=== PATIENT | male | born 1990 | race Hispanic/Latino ===

== ENCOUNTER 2017-08-29 06:28 | Day surgery (SDC) | payer MEDICAID ==
[~2017-08-29] VITALS: Ht 177.8 cm; Wt 136.3 kg
[~2017-08-29 06:28] MED LIST: SODIUM CHLORIDE 0.9% 1000ML 1,000 ML IV ONE
[2017-08-29 06:53] VITALS: BP 103/20
[2017-08-29] MEDS ORDERED: METF500T6 PO (07:28)
[2017-08-29] MEDS ORDERED: PROPOFOL 10 MG/ML 20ML VIAL IV ONE (07:39)
== END 2017-08-29 08:35 | disposition home or self-care (01) ==
LOC: SUH 06:28 → DAH 06:28 → SUH 08:35
PROVIDERS: ATTEND Internal Medicine Gastroenterology
DX: K29.50 Unspecified chronic gastritis without bleeding (principal); K21.0 Gastro-esophageal reflux disease with esophagitis; I10 Essential (primary) hypertension; E11.9 Type 2 diabetes mellitus without complications; Z79.84 Long term (current) use of oral hypoglycemic drugs; Z72.0 Tobacco use
CPT/HCPCS: 43239; 82948 ×2; 88305; 88312; 88342; A4606; J2704; J7030

== ENCOUNTER 2018-11-17 22:52 | Inpatient (IN) | payer MEDICAID, OTHER ==
[~2018-11-17] VITALS: Ht 180.3 cm; Wt 119.6 kg
[~2018-11-17 22:52] MED LIST changes: +METF-444 PO; -SODIUM CHLORIDE 0.9% 1000ML 1,000 ML IV ONE
[2018-11-17] MEDS ORDERED: SODIUM CHLORIDE 0.9% 1000ML 1,000 ML IV ONE (23:36)
[2018-11-18 00:01] LABS: ABG BASE EXCESS 0.9 mmol/L (-2.0-3.0); ABG HCO3 24.4 mmol/L (21.0-28.0); ABG OXYGEN SATURATION 88.5 % (95.0-99.0); ABG PCO2 36 mmHg (35-48)
[2018-11-18 00:33] LABS: BASOPHILS % (AUTO) 0.5 % (0.0-5.0); EOSINOPHILS % (AUTO) 0.6 % (0.0-8.0); HEMATOCRIT 40.3 % (42-54); LYMPHOCYTES % (AUTO) 6.2 % (21.0-51.0); MEAN CORPUSCULAR HEMOGLOBIN 29.7 pg (27.0-33.0); MEAN CORPUSCULAR HGB CONC 33.1 g/dL (32.0-36.0); MEAN CORPUSCULAR VOLUME 89.6 fL (79-99); MONOCYTES % (AUTO) 10.5 % (3.0-13.0); NEUTROPHILS % (AUTO) 82.2 % (40.0-77.0); PLATELET COUNT (AUTO) 315 K/uL (130-400); RED CELL DISTRIBUTION WIDTH 13.7 % (11.0-15.5); WHITE BLOOD COUNT (AUTO) 14.9 K/uL (4.8-10.8)
[2018-11-18 01:09] LABS: APPEARANCE,URINE Clear (CLEAR); BILIRUBIN,URINE Negative (NEGATIVE); COLOR,URINE Yellow (YELLOW); GLUCOSE, URINE (UA) >=1000 mg/dL (NEGATIVE); KETONES,URINE >=80 mg/dL (NEGATIVE); LEUKOCYTE ESTERASE ,URINE Negative (NEGATIVE); NITRATE,URINE Negative (NEGATIVE); OCCULT BLOOD,URINE Negative (NEGATIVE); PROTEIN,URINE Negative (NEGATIVE)
[2018-11-18] MEDS ORDERED: SODIUM CHLORIDE 0.9% 1000ML 4,000 ML IV ONE (01:14)
[2018-11-18] MEDS ORDERED: ZOSYN 3.375GM+NS 50ML 50 ML IV ONE (01:14)
[2018-11-18] MEDS ORDERED: INSULIN HUMULIN R 100 UNIT/ML 3ML ONE (01:21)
[2018-11-18] MEDS ORDERED: IOHEXOL-350 75 ML VIAL IV ONE (01:46)
[2018-11-18 02:14] LABS: BACTERIA,URINE Rare /HPF (None Seen); RBC,URINE 0-1 /HPF (0-1); WBC,URINE 0-1 /HPF (0-1); YEAST,URINE BUDDING Few /HPF (None Seen)
[2018-11-18] MEDS: SODIUM CHLORIDE 0.9% 1000ML 1,000 ML IV SCH ×2 (02:24→13:20)
[2018-11-18] MEDS ORDERED: MORPHINE SULFATE 4 MG/1ML SYG IV PRN (02:30)
[2018-11-18] MEDS ORDERED: ONDANSETRON HCL 4 MG/2 ML VIAL IV PRN (02:30)
[2018-11-18] MEDS ORDERED: GUAIFENESIN-CODEINE 5 ML SYRUP PO PRN (02:30)
[2018-11-18] MEDS: AZITHROMYCIN 500MG+NS 250ML 250 ML IV SCH (02:30)
[2018-11-18] MEDS ORDERED: DIPHENHYDRAMINE HCL 25 MG CAPSULE PO PRN (02:30)
[2018-11-18] MEDS ORDERED: ACETAMINOPHEN 325 MG TAB PO PRN (02:30)
[2018-11-18] MEDS: CEFTRIAXONE SODIUM 1 GM IV SCH (02:30)
[2018-11-18] MEDS ORDERED: MORPHINE SULFATE 2 MG/ML 1ML SYG IV PRN (02:30)
[2018-11-18] MEDS ORDERED: IBUPROFEN 800 MG TAB ONE (02:45)
[2018-11-18] MEDS ORDERED: ACETAMINOPHEN EXTRA STRENGTH 500 MG TABLET ONE (02:45)
[2018-11-18 03:00] VITALS: BP 147/80
[2018-11-18] MEDS ORDERED: CEFTRIAXONE SODIUM 1 GM ONE (03:41)
[2018-11-18] MEDS ORDERED: AZITHROMYCIN 500MG+NS 250ML 250 ML IV ONE (03:41)
[2018-11-18] MEDS ORDERED: SODIUM CHLORIDE 0.9% 1000ML 1,000 ML IV ONE (03:42)
[2018-11-18 07:00] VITALS: BP 138/95
[2018-11-18] MEDS: INSULIN HUMULIN R 100 UNIT/ML 3ML SQ SCH ×4 (07:09→21:00)
[2018-11-18] MEDS: IPRATROPIUM/ALBUTEROL SULFATE 3 ML SOLUTION IH SCH ×4 (07:19→23:23)
--- NOTE | 2018-11-18 07:30 | NUR ---
PT RECEIVED IN BED, AAOX3, PT ON VM AT 35 %. POC DISCUSSED WITH PATIENT TO DECREASE VM TO O2 CANULA. PT VOICE UNDERSTANDING. ENCOURAGED ON ENERGY CONSERVATION TO MAINTAIN ADEQUATE OXYGENATION. PT VOICED UNDERSTANDING. TELE WITH ST 106. WILL CONT TO MONITOR.
[2018-11-18] MEDS: FAMOTIDINE/PF 20 MG/2 ML VIAL IV SCH ×2 (08:19→21:11)
[2018-11-18] MEDS: ENOXAPARIN SODIUM 40 MG/0.4 ML SYRINGE SQ SCH ×2 (08:19→21:13)
[2018-11-18 11:00] VITALS: BP 148/75
--- NOTE | 2018-11-18 15:19 | NUR ---
DC PLAN PATIENT LIVES WITH SPOUSE. INDEPENDENT ABLE TO PERFORM ADL'S. PATIENT HAS NO SER VICES OR DME'S. FEELS SAFE TO RETURN HOME. LOST MEDICAID RECENTLY GAVE LOW INCOME CLINIC INFO. Addendum: 11/18/18 at 1520 by REZA LUCIO RN CM Amended: Links added.
[2018-11-18 16:00] VITALS: BP 146/98
--- NOTE | 2018-11-18 17:00 | NUR ---
VENTI-MASK REMOVED. NO C/O SOB AT THIS TIME. WILL CONT TO MONITOR.
[2018-11-18 20:33] VITALS: BP 142/78
--- NOTE | 2018-11-18 21:00 | NUR ---
Per Dr Haskins start patient on Metoprolol tartrate 25mg bid for tachycardia. Hold if HR <60
[2018-11-18] MEDS: METOPROLOL TARTRATE 25 MG TAB PO SCH (22:44)
[2018-11-19 00:12] VITALS: BP 136/85
[2018-11-19] MEDS: ACETAMINOPHEN 325 MG TAB PO PRN ×2 (00:23→20:47)
[2018-11-19] MEDS: AZITHROMYCIN 500MG+NS 250ML 250 ML IV SCH (01:40)
[2018-11-19] MEDS: CEFTRIAXONE SODIUM 1 GM IV SCH (01:40)
[2018-11-19] MEDS: SODIUM CHLORIDE 0.9% 1000ML 1,000 ML IV SCH ×2 (01:41→20:48)
[2018-11-19 03:40] LABS: BASOPHILS % (AUTO) 0.3 % (0.0-5.0); HEMATOCRIT 35.2 % (42-54); LYMPHOCYTES % (AUTO) 10.9 % (21.0-51.0); MEAN CORPUSCULAR HEMOGLOBIN 29.7 pg (27.0-33.0); MEAN CORPUSCULAR HGB CONC 33.4 g/dL (32.0-36.0); MEAN CORPUSCULAR VOLUME 89.1 fL (79-99); MONOCYTES % (AUTO) 10.6 % (3.0-13.0); NEUTROPHILS % (AUTO) 76.2 % (40.0-77.0); PLATELET COUNT (AUTO) 317 K/uL (130-400); RED BLOOD CELL COUNT(AUTO) 3.95 MIL/uL (4.50-6.20); RED CELL DISTRIBUTION WIDTH 13.6 % (11.0-15.5); WHITE BLOOD COUNT (AUTO) 10.1 K/uL (4.8-10.8)
[2018-11-19 03:51] LABS: CREATININE 0.6 mg/dL (0.5-1.5); POTASSIUM 3.3 mmol/L (3.5-5.1)
[2018-11-19 04:31] VITALS: BP 148/91
[2018-11-19] MEDS: IPRATROPIUM/ALBUTEROL SULFATE 3 ML SOLUTION IH SCH ×4 (06:08→23:11)
[2018-11-19] MEDS: INSULIN HUMULIN R 100 UNIT/ML 3ML SQ SCH ×4 (07:16→21:00)
[2018-11-19 08:22] VITALS: BP 161/98
[2018-11-19] MEDS: METOPROLOL TARTRATE 25 MG TAB PO SCH ×2 (08:43→20:36)
[2018-11-19] MEDS: ENOXAPARIN SODIUM 40 MG/0.4 ML SYRINGE SQ SCH ×2 (08:43→20:37)
[2018-11-19] MEDS: FAMOTIDINE/PF 20 MG/2 ML VIAL IV SCH ×2 (08:43→20:36)
[2018-11-19 11:00] VITALS: BP 143/109
[2018-11-19 16:00] VITALS: BP 161/88
--- NOTE | 2018-11-19 16:41 | NUR ---
RD Notification Pt tolerating 60gm CCD with no report of GI distress. Fair appetite at 50-75%. Pt LBM 11/17/18. Pt monitored labs: K 3.3, Cl 100, BUN 6, Glu 171, A1C 13.0, Alb 2.7. RD provided diet education. Rec to continue 60gm CCD. RD to continue to monitor. Please notify RD as additional nutrition concerns arise. Thank you. Addendum: 11/19/18 at [address] RD Amended: Links added.
--- NOTE | 2018-11-19 16:44 | NUR ---
Diet education RD provided Diabetes and nutrition diet education. RD reviewed reference materials and handouts with Pt. Pt with multiple questions. RD answered questions and discussed examples and sample meal planning and other lifestyle factors with Pt. Pt verbalized understanding. RD encouraged Pt to notify as additional questions or concerns arise. RD to continue to monitor. Addendum: 11/19/18 at [address] RD Amended: Links added.
[2018-11-19 19:51] VITALS: BP 148/95
[2018-11-19] MEDS ORDERED: CEFAZOLIN SODIUM 1 GM VIAL IVP PRN (22:00)
[2018-11-19] MEDS: INSULIN GLARGINE 100 UNITS/ML 10 ML VIAL SQ SCH (22:37)
[2018-11-20] VITALS (12 sets, daily range): BP systolic 110–163; BP diastolic 55–95
[2018-11-20] MEDS: AZITHROMYCIN 500MG+NS 250ML 250 ML IV SCH (03:28)
[2018-11-20] MEDS: CEFTRIAXONE SODIUM 1 GM IV SCH (03:28)
[2018-11-20 04:18] LABS: HEMATOCRIT 34.6 % (42-54); MEAN CORPUSCULAR HEMOGLOBIN 29.6 pg (27.0-33.0); MEAN CORPUSCULAR HGB CONC 33.2 g/dL (32.0-36.0); MEAN CORPUSCULAR VOLUME 89.2 fL (79-99); PLATELET COUNT (AUTO) 345 K/uL (130-400); RED BLOOD CELL COUNT(AUTO) 3.88 MIL/uL (4.50-6.20); RED CELL DISTRIBUTION WIDTH 13.5 % (11.0-15.5); WHITE BLOOD COUNT (AUTO) 9.8 K/uL (4.8-10.8)
[2018-11-20 04:23] LABS: CREATININE 0.8 mg/dL (0.5-1.5)
[2018-11-20 04:31] LABS: INR 0.98 (0.85-1.15); PARTIAL THROMBOPLASTIN TIME 31.1 SEC (26.3-35.5); PROTHROMBIN TIME 10.3 SEC (9.6-11.6)
--- NOTE | 2018-11-20 04:56 | NUR ---
ORDERS NOTIFIED JAI WILLIS OF PATIENT'S POTASSIUM LEVEL. ELECTROLYTE PROTOCOL WILL BE INPUT BY RESPIRATORY THERAPY AIDE
--- NOTE | 2018-11-20 04:58 | NUR ---
PATIENT CLIPPED AND PREPPED FOR VATS PROCEDURE. CONSENT SIGNED. EDUCATION READING MATERIAL GIVEN
[2018-11-20] MEDS ORDERED: MAGNESIUM 2GM PREMIX 50ML 50 ML IV PRN (05:00)
[2018-11-20] MEDS: IPRATROPIUM/ALBUTEROL SULFATE 3 ML SOLUTION IH SCH ×3 (06:13→18:00)
[2018-11-20] MEDS: POTASSIUM CHLORIDE 20MEQ/100ML 100 ML IV PRN ×2 (06:23→23:53)
[2018-11-20] MEDS: INSULIN HUMULIN R 100 UNIT/ML 3ML SQ SCH ×3 (07:28→16:30)
--- NOTE | 2018-11-20 07:30 | NUR ---
AM ASSESSMENT PT LAYING IN BED, HOB ELEVATED 30 DEGREES, WATCHING TV. SPOUSE @ BEDSIDE. A/O X 3. SOB ON EXERTION. NO DISTRESS NOTED. O2 NC @ 2L. O2 EXTENSION GIVEN @ THIS TIME. DENIES CHEST PAIN OR DISCOMFORT. DENIES PALPITATIONS. DENIES N/V AND/OR DIARRHEA. NPO STATUS REINFORCED. PT TO HAVE VATS TODAY. 0.9% NACL INFUSING @ 100 ML/HR. UP W/ASSISTANCE. INSTRUCTED TO CALL FOR ASSISTANCE. CALL ROZ W/IN REACH.
[2018-11-20] MEDS: FAMOTIDINE/PF 20 MG/2 ML VIAL IV SCH ×2 (08:33→23:21)
[2018-11-20] MEDS: ENOXAPARIN SODIUM 40 MG/0.4 ML SYRINGE SQ SCH (08:33)
[2018-11-20] MEDS: METOPROLOL TARTRATE 25 MG TAB PO SCH ×2 (08:33→21:00)
[2018-11-20] MEDS: SODIUM CHLORIDE 0.9% 1000ML 1,000 ML IV SCH ×3 (15:07→23:07)
[2018-11-20] MEDS ORDERED: DEXAMETHASONE SOD PHOSPHATE 10MG/ML 1ML VIAL ONE (17:25)
[2018-11-20] MEDS ORDERED: LIDOCAINE PF 2% 5ML ABBOJECT ONE (17:25)
[2018-11-20] MEDS ORDERED: SUCCINYLCHOLINE 200MG/10ML SYR ONE (17:25)
[2018-11-20] MEDS ORDERED: ONDANSETRON HCL 4 MG/2 ML VIAL ONE (17:25)
--- NOTE | 2018-11-20 17:25 | NUR ---
STATUS PT TAKEN TO OR VIA BED ACCOMPANIED BY FAMILY. TELE CHRISTOPHER REMOVED.
[2018-11-20] MEDS ORDERED: FENTANYL CITRATE PF 50 MCG/1 ML 2ML VIAL ONE (17:26)
[2018-11-20] MEDS ORDERED: NEOSTIGMINE 5MG/5ML SYR IV ONE (17:26)
[2018-11-20] MEDS ORDERED: ROCURONIUM 10MG/1ML SYR 10 MG/ML ML ONE ×2 (17:26→20:28)
[2018-11-20] MEDS ORDERED: MIDAZOLAM HCL 1 MG/ML 2ML VIAL ONE (17:26)
[2018-11-20] MEDS ORDERED: GLYCOPYRROLATE 1 MG/5 ML SYRINGE ONE (17:26)
[2018-11-20] MEDS ORDERED: PROPOFOL 10 MG/ML 20ML VIAL IV ONE (17:26)
[2018-11-20] MEDS ORDERED: BACITRACIN 50,000 UNIT VIAL ONE (18:06)
[2018-11-20] MEDS ORDERED: CEFAZOLIN SODIUM 1 GM VIAL ONE (18:43)
[2018-11-20] MEDS ORDERED: SODIUM BICARB 50MEQ 50ML VIAL IV PRN (20:15)
[2018-11-20] MEDS ORDERED: MORPHINE SULFATE 2 MG/ML 1ML SYG IVP PRN ×2 (20:15)
[2018-11-20 20:22] LABS: ABG BASE EXCESS 1.3 mmol/L (-2.0-3.0); ABG HCO3 25.6 mmol/L (21.0-28.0); ABG PCO2 40 mmHg (35-48)
[2018-11-20] MEDS: INSULIN GLARGINE 100 UNITS/ML 10 ML VIAL SQ SCH (21:00)
[2018-11-20] MEDS ORDERED: FENTANYL CITRATE PF 50 MCG/1 ML 5ML AMP IV ONE (21:46)
[2018-11-20] MEDS ORDERED: PROPOFOL 1000 MG/100 ML 100 ML IV ONE ×2 (22:28→23:39)
[2018-11-20 22:58] LABS: HEMATOCRIT 35.2 % (42-54); MEAN CORPUSCULAR HEMOGLOBIN 29.9 pg (27.0-33.0); MEAN CORPUSCULAR HGB CONC 33.7 g/dL (32.0-36.0); MEAN CORPUSCULAR VOLUME 88.7 fL (79-99); NUCLEATED RED BLOOD CELLS 0.1 % (0.0-0.19); PLATELET COUNT (AUTO) 394 K/uL (130-400); RED BLOOD CELL COUNT(AUTO) 3.97 MIL/uL (4.50-6.20); RED CELL DISTRIBUTION WIDTH 13.8 % (11.0-15.5); WHITE BLOOD COUNT (AUTO) 11.9 K/uL (4.8-10.8)
[2018-11-20 22:59] LABS: ABG BASE EXCESS 0.1 mmol/L (-2.0-3.0); ABG OXYGEN SATURATION 97.8 % (95.0-99.0); ABG PCO2 41 mmHg (35-48)
[2018-11-20] MEDS ORDERED: METOPROLOL TARTRATE 1 MG/ML 5ML VIAL IV PRN (23:00)
[2018-11-20 23:06] LABS: CREATININE 0.7 mg/dL (0.5-1.5); POTASSIUM 3.4 mmol/L (3.5-5.1)
[2018-11-20] MEDS: ZOSYN 3.375GM+NS 50ML 50 ML IV SCH (23:22)
[2018-11-20] MEDS: LIDOCAINE HCL-MPF 1% 2ML VIAL IVP PRN (23:53)
[2018-11-21] VITALS (66 sets, daily range): BP systolic 100–178; BP diastolic 64–104
[2018-11-21] MEDS: INSULIN HUMULIN R 100 UNIT/ML 3ML SQ SCH ×5 (00:03→21:00)
[2018-11-21] MEDS ORDERED: PROPOFOL 1000 MG/100 ML IV PRN (00:05)
--- NOTE | 2018-11-21 00:15 | NUR ---
2230 Admitted from OR, vented. Initial assessment completed. Spoke with Dr De Anda. Orders received. Labs drawn, chest x ray done on admission to ICU. 0015 Dr De Anda here. Reviewed labs, abgs, saw chest x ray, spoke with patient's , mother. Orders received.
[2018-11-21] MEDS: IPRATROPIUM/ALBUTEROL SULFATE 3 ML SOLUTION IH SCH ×5 (00:34→23:28)
[2018-11-21] MEDS ORDERED: PROPOFOL 1000 MG/100 ML 100 ML IV ONE (01:21)
[2018-11-21] MEDS: AZITHROMYCIN 500MG+NS 250ML 250 ML IV SCH (01:32)
[2018-11-21] MEDS: CEFAZOLIN SODIUM 1 GM VIAL IVP SCH ×2 (03:38→11:07)
[2018-11-21] MEDS: PROPOFOL 1000 MG/100 ML 100 ML IV PRN ×9 (03:39→22:36)
[2018-11-21 04:01] LABS: HEMATOCRIT 34.7 % (42-54); MEAN CORPUSCULAR HEMOGLOBIN 28.9 pg (27.0-33.0); MEAN CORPUSCULAR HGB CONC 32.6 g/dL (32.0-36.0); MEAN CORPUSCULAR VOLUME 88.6 fL (79-99); PLATELET COUNT (AUTO) 418 K/uL (130-400); RED BLOOD CELL COUNT(AUTO) 3.92 MIL/uL (4.50-6.20); RED CELL DISTRIBUTION WIDTH 13.6 % (11.0-15.5); WHITE BLOOD COUNT (AUTO) 13.6 K/uL (4.8-10.8)
[2018-11-21 04:10] LABS: CREATININE 0.6 mg/dL (0.5-1.5); MAGNESIUM 2.4 mg/dL (1.80-2.40); POTASSIUM 3.9 mmol/L (3.5-5.1)
[2018-11-21 04:27] LABS: ABG HCO3 21.3 mmol/L (21.0-28.0); ABG OXYGEN SATURATION 96.6 % (95.0-99.0); ABG PCO2 36 mmHg (35-48)
[2018-11-21] MEDS: ZOSYN 3.375GM+NS 50ML 50 ML IV SCH ×3 (06:17→22:36)
--- NOTE | 2018-11-21 07:50 | NUR ---
Care of patient endorsed earlier to Sal DUKE and Ana Cristina DUKE. Dr Hardin rounded earlier. Full report given.
[2018-11-21] MEDS: METOPROLOL TARTRATE 25 MG TAB PO SCH ×2 (08:50→20:38)
[2018-11-21] MEDS: FAMOTIDINE/PF 20 MG/2 ML VIAL IV SCH ×2 (08:50→20:39)
[2018-11-21] MEDS: TRAMADOL HCL 50 MG TABLET PO PRN ×2 (12:17→20:39)
--- NOTE | 2018-11-21 14:20 | NUR ---
DR WALSH AT BEDSIDE TO PERFORM BRONCHOSCOPY, RT X3 AT BEDSIDE TO ASSIST.
--- NOTE | 2018-11-21 15:40 | NUR ---
DR WALSH NOTIFIED VIA PHONE ABOUT LATEST TEMP 101.2 AXILLARY, NEW ORDERS GIVEN TO START VANCO 1 GRAM IV Q 12 HRS, VANCO TROUGH BEFORE 3RD DOSE. DOES NOT WANT PHARMACY TO DOSE VANCO.
[2018-11-21] MEDS: VANCOMYCIN 1GM+NS 250ML 250 ML IV SCH (15:55)
[2018-11-21] MEDS ORDERED: IPRATROPIUM/ALBUTEROL SULFATE 3 ML SOLUTION IH SCH (16:00)
--- NOTE | 2018-11-21 16:50 | NUR ---
PLACED ON SIMV MODE PER RT, RATE 4, 10 OVER 5, BECAME VERY TACHYPNEIC, RESP 37, LOW TIDAL VOLUMES 50-150, DESATING INTO THE 80'S, PLACED BACK ON AC MODE SETTINGS. DR MCCABE MADE AWARE, NEW ORDERS GIVEN TO TRY AGAIN UNTIL TOMORROW, PER CVR PROTOCOL.
[2018-11-21] MEDS: SODIUM CHLORIDE 0.9% 1000ML 1,000 ML IV SCH (18:04)
[2018-11-21] MEDS: ACETYLCYSTEINE 10% 100MG/ML 4ML VIAL IH SCH (18:22)
[2018-11-21] MEDS: INSULIN GLARGINE 100 UNITS/ML 10 ML VIAL SQ SCH (20:51)
[2018-11-22] VITALS (24 sets, daily range): BP systolic 105–148; BP diastolic 62–91
[2018-11-22] MEDS: PROPOFOL 1000 MG/100 ML 100 ML IV PRN ×8 (00:17→23:18)
[2018-11-22] MEDS: AZITHROMYCIN 500MG+NS 250ML 250 ML IV SCH (02:12)
[2018-11-22] MEDS: VANCOMYCIN 1GM+NS 250ML 250 ML IV SCH (03:18)
[2018-11-22 03:56] LABS: BASOPHILS % (AUTO) 0.3 % (0.0-5.0); EOSINOPHILS % (AUTO) 0.9 % (0.0-8.0); HEMATOCRIT 31.8 % (42-54); LYMPHOCYTES % (AUTO) 10.2 % (21.0-51.0); MEAN CORPUSCULAR HGB CONC 33.7 g/dL (32.0-36.0); MONOCYTES % (AUTO) 9.3 % (3.0-13.0); NEUTROPHILS % (AUTO) 79.3 % (40.0-77.0); NUCLEATED RED BLOOD CELLS 0.1 % (0.0-0.19); PLATELET COUNT (AUTO) 427 K/uL (130-400); RED BLOOD CELL COUNT(AUTO) 3.57 MIL/uL (4.50-6.20); RED CELL DISTRIBUTION WIDTH 13.8 % (11.0-15.5); WHITE BLOOD COUNT (AUTO) 12.1 K/uL (4.8-10.8)
[2018-11-22 04:09] LABS: CREATININE 0.6 mg/dL (0.5-1.5)
[2018-11-22] MEDS: POTASSIUM CHLORIDE 20MEQ/100ML 100 ML IV PRN ×2 (04:28→05:31)
[2018-11-22] MEDS: ZOSYN 3.375GM+NS 50ML 50 ML IV SCH ×3 (06:22→23:15)
[2018-11-22] MEDS: INSULIN HUMULIN R 100 UNIT/ML 3ML SQ SCH ×4 (06:27→21:00)
[2018-11-22] MEDS: IPRATROPIUM/ALBUTEROL SULFATE 3 ML SOLUTION IH SCH ×4 (06:59→23:10)
[2018-11-22] MEDS: ACETYLCYSTEINE 10% 100MG/ML 4ML VIAL IH SCH ×2 (06:59→18:05)
--- NOTE | 2018-11-22 07:52 | NUR ---
VENT WEANING IN PROGRESS. SIMV MODE PER CVR PROTOCOL. PT IS RESPONSIVE AND CALM AT PRET
--- NOTE | 2018-11-22 08:30 | NUR ---
DR MCCABE HAS CONVERTED CHEST TUBES TO HENNA BULB SUCTION X 2 BULBS. GARFIELDRISAVITA TURNED OFF.
[2018-11-22] MEDS: FAMOTIDINE/PF 20 MG/2 ML VIAL IV SCH ×2 (08:45→20:27)
[2018-11-22] MEDS: METOPROLOL TARTRATE 25 MG TAB PO SCH ×2 (08:45→20:27)
[2018-11-22 08:52] LABS: ABG BASE EXCESS 2.6 mmol/L (-2.0-3.0); ABG HCO3 27.9 mmol/L (21.0-28.0); ABG OXYGEN SATURATION 86.7 % (95.0-99.0); ABG PCO2 45 mmHg (35-48)
--- NOTE | 2018-11-22 09:37 | NUR ---
PT NOW WIDE AWAKE AND NOT BUCKING VENTILATOR. ABG CHECKED AND PO2 WAS LOW 51.8. RESPIRATORY THERAPY HAS PLACED PT ON 60%FIO2. PT IS COMMUNICATING WITH HIS CELL PHONE BY TEXTING. WILL CONTINUE TO WEAN TOLERATED
[2018-11-22 10:23] LABS: ABG BASE EXCESS 0.9 mmol/L (-2.0-3.0); ABG HCO3 25.6 mmol/L (21.0-28.0); ABG OXYGEN SATURATION 95.2 % (95.0-99.0); ABG PCO2 41 mmHg (35-48)
--- NOTE | 2018-11-22 10:35 | NUR ---
PT REMAINING CALM ,BUT EXPRESSES THAT HE IS GETTING FRUSTRATED WITH ET TUBE AND HAVING TROUBLE RELAXING. ABG REVIEWED. DR ELIOT SANTOS.
--- NOTE | 2018-11-22 10:49 | NUR ---
NO CALL BACK FROM DR MCCABE. PT CALLS ME AGAIN, HE IS GETTING FATIGUED. HE ASKS ME TO START SEDATION. I HAVE RESTARTED DIPRIVAN AT 20MCG/KG/MIN. WILL CONTINUE TO REASSESS.
--- NOTE | 2018-11-22 11:15 | NUR ---
PT NOW RESTFUL/CALM. DR MCCABE RETURNED PAGE AND ASKED ME TO CONTINUE I AM DOING AND TO HAVE PULMONOLOGY HELP WITH WEANING.
--- NOTE | 2018-11-22 13:45 | NUR ---
DR ALVARADO ROUNDS MADE AT BEDSIDE. REPORT GIVEN TO DR ALVARADO. ORDERS RECEIVED FOR VENT WEANING IN AM
[2018-11-22] MEDS: ENOXAPARIN SODIUM 40 MG/0.4 ML SYRINGE SQ SCH (14:28)
[2018-11-22] MEDS: SODIUM CHLORIDE 0.9% 1000ML 1,000 ML IV SCH (14:28)
--- NOTE | 2018-11-22 16:05 | NUR ---
DR MCCABE NOTIFIED WITH VANCOMYCIN LEVEL RESULTS OF 1.9. ORDER RECEIVED TO INCREASE DOSE TO 1.25GM IV Q12HR
[2018-11-22] MEDS ORDERED: PHARMACY COMMUNICATION MISC SCH (16:15)
[2018-11-22] MEDS: VANCOMYCIN 1.25 GM in SODIUM CHLORIDE 0.9% 250 ML IV SCH (16:51)
[2018-11-22] MEDS ORDERED: VANCOMYCIN 1.25 GM in SODIUM CHLORIDE 0.9% 250 ML IV SCH (17:00)
[2018-11-22] MEDS ORDERED: COMPOUND IV REFRIGERATED 1 EACH IVSOLN MISC PRN (17:00)
--- NOTE | 2018-11-22 19:10 | NUR ---
HAND OFF REPORT GIVEN TO HARVEY DUKE
--- NOTE | 2018-11-22 19:12 | NUR ---
ASSESSMENT: REPORT RECEIVED, PATIENT AWAKE, ALERT, FOLLOWS COMMANDS , INTUBATED AND SEDATED WITH LOW DOSE DIPRIVAN. EXTREMITIES STRONG X4, EQUAL HAND GRASPS, IVETTE 3MM EQUAL, LUNGS CLEAR, DIMINISHED TO RLL. HENNA BULBS X 2 TO LEFT CHEST WALL COMPRESSED WITH SEROSANGUINEOUS DRAINAGE, BREWER PATENT TO BEDSIDE DRAINAGE. AT BEDSIDE. PLAN OF CARE DISCUSSED. CALL COURTNEY IN REACH.
[2018-11-22] MEDS: INSULIN GLARGINE 100 UNITS/ML 10 ML VIAL SQ SCH (21:36)
[2018-11-23] VITALS (26 sets, daily range): BP systolic 102–158; BP diastolic 59–97
[2018-11-23] MEDS: PROPOFOL 1000 MG/100 ML 100 ML IV PRN ×2 (01:36→10:11)
[2018-11-23] MEDS: AZITHROMYCIN 500MG+NS 250ML 250 ML IV SCH (01:36)
[2018-11-23 03:37] LABS: EOSINOPHILS % (AUTO) 1.8 % (0.0-8.0); HEMATOCRIT 30.9 % (42-54); LYMPHOCYTES % (AUTO) 10.9 % (21.0-51.0); MEAN CORPUSCULAR HGB CONC 32.8 g/dL (32.0-36.0); MEAN CORPUSCULAR VOLUME 88.4 fL (79-99); MONOCYTES % (AUTO) 8.7 % (3.0-13.0); NEUTROPHILS % (AUTO) 77.6 % (40.0-77.0); PLATELET COUNT (AUTO) 449 K/uL (130-400); RED CELL DISTRIBUTION WIDTH 13.9 % (11.0-15.5); WHITE BLOOD COUNT (AUTO) 10.6 K/uL (4.8-10.8)
[2018-11-23 03:50] LABS: CREATININE 0.6 mg/dL (0.5-1.5); POTASSIUM 3.2 mmol/L (3.5-5.1)
[2018-11-23] MEDS: POTASSIUM CHLORIDE 20MEQ/100ML 100 ML IV PRN ×2 (04:20→16:12)
[2018-11-23] MEDS: LIDOCAINE HCL-MPF 1% 2ML VIAL IVP PRN ×2 (04:21→16:15)
[2018-11-23] MEDS: VANCOMYCIN 1.25 GM in SODIUM CHLORIDE 0.9% 250 ML IV SCH ×2 (04:53→16:16)
[2018-11-23] MEDS: ZOSYN 3.375GM+NS 50ML 50 ML IV SCH ×3 (06:30→23:05)
[2018-11-23] MEDS: INSULIN HUMULIN R 100 UNIT/ML 3ML SQ SCH ×4 (06:33→20:16)
[2018-11-23] MEDS: IPRATROPIUM/ALBUTEROL SULFATE 3 ML SOLUTION IH SCH ×4 (06:49→23:02)
[2018-11-23] MEDS: ACETYLCYSTEINE 10% 100MG/ML 4ML VIAL IH SCH ×2 (06:50→17:54)
--- NOTE | 2018-11-23 07:01 | NUR ---
PT AWAKE AND ALERT. CALM. PLAN OF CARE DISCUSSED GOALS MADE. WANTS TO BE EXTUBATED. CPAP TRIAL IN PROGRESS.
[2018-11-23] MEDS: FAMOTIDINE/PF 20 MG/2 ML VIAL IV SCH ×2 (08:09→20:36)
[2018-11-23] MEDS: METOPROLOL TARTRATE 25 MG TAB PO SCH ×2 (08:09→20:37)
[2018-11-23] MEDS: ENOXAPARIN SODIUM 40 MG/0.4 ML SYRINGE SQ SCH (08:09)
[2018-11-23 08:59] LABS: ABG BASE EXCESS 3.7 mmol/L (-2.0-3.0); ABG HCO3 27.9 mmol/L (21.0-28.0); ABG OXYGEN SATURATION 90.8 % (95.0-99.0); ABG PCO2 41 mmHg (35-48)
--- NOTE | 2018-11-23 09:30 | NUR ---
DR MCCABE NOTIFIED WITH ABG /VS/PT RESPIRATORY STATS. PT PLACED BACK ON AC SETTINGS AND FIO2 INCREASED TO 50%. WILL RESUME SEDATION. CT ANGIO OF THE CHEST TO RULE OUT PE ORDERED. PT AND FAMILY INFORMED
[2018-11-23] MEDS ORDERED: IOHEXOL 350 MG/ML 100ML INFUS..BTL IV ONE ×2 (09:34→10:34)
[2018-11-23] MEDS: SODIUM CHLORIDE 0.9% 1000ML 1,000 ML IV SCH (11:00)
--- NOTE | 2018-11-23 11:04 | NUR ---
BACK FROM CT DEPT. TOLERATED PROCEDURE WELL- NO ADVERSE REACTIONS OR INJURIES SUSTAINED.
[2018-11-23] MEDS ORDERED: FUROSEMIDE 10 MG/ML 4ML VIAL ONE (11:23)
[2018-11-23] MEDS ORDERED: FUROSEMIDE 10 MG/ML 4ML VIAL IV SCH (11:30)
--- NOTE | 2018-11-23 11:36 | NUR ---
DR JIMÉNEZ ROUNDS MADE- HE REVIEWED CT SCAN/VS/MEDS/EXAMINED PT. DIPRIVAN IS OFF AGAIN AND CPAP TRIALS TO RESUME. DR JIMÉNEZ WILL COME BACK TO RE-EVALUATE PT AT BEDSIDE
--- NOTE | 2018-11-23 13:16 | NUR ---
TOLERATING CPAP-NO DISTRESS-02SATS 94%
--- NOTE | 2018-11-23 14:02 | NUR ---
DR JIMÉNEZ INFORMED OF PATIENTS CURRENT STATUS AND CT RESULTS- ORDERS GIVEN TO EXTUBATE . PLEASE REFER TO ORDERS. DR MCCABE NOTIFIED OF DR JIMÉNEZ ORDERS
--- NOTE | 2018-11-23 15:00 | NUR ---
PT EXTUBATED SUCCESSFULLY. HE IS NOW ON 60%FIO2 COOL MIST MASK. DR JIMÉNEZ REASSESSED PATIENT AT BEDSIDE AFTER EXTUBATION. NO ACUTE DISTRESS NOTED
--- NOTE | 2018-11-23 15:21 | NUR ---
DR MCCABE ROUNDS MADE. ORDERS RECEIVED. RECORDS REVIEWED
--- NOTE | 2018-11-23 15:58 | NUR ---
VANCOMYCIN LEVEL 4.[address] MCCABE-ORDER RECEIVED
--- NOTE | 2018-11-23 20:00 | NUR ---
ASSESSMENT PT RESTING QUIETLY IN BED, FAMILY AT BEDSIDE. C/OP PAIN, SEE E.MAR. ASSESSMENT COMPLETED, SEE FLOW SHEET.
[2018-11-23] MEDS: GUAIFENESIN 600 MG TABLET.ER PO SCH (20:37)
[2018-11-23] MEDS: POTASSIUM CHLORIDE 20 MEQ ERTAB PO SCH (20:37)
[2018-11-23] MEDS: FUROSEMIDE 20 MG TABLET PO SCH (20:38)
[2018-11-23] MEDS: TRAMADOL HCL 50 MG TABLET PO PRN (20:39)
[2018-11-23] MEDS: INSULIN GLARGINE 100 UNITS/ML 10 ML VIAL SQ SCH (20:41)
[2018-11-24] VITALS (14 sets, daily range): BP systolic 109–150; BP diastolic 68–99
[2018-11-24] MEDS: AZITHROMYCIN 500MG+NS 250ML 250 ML IV SCH (02:13)
[2018-11-24 04:04] LABS: BASOPHILS % (AUTO) 0.6 % (0.0-5.0); EOSINOPHILS % (AUTO) 2.2 % (0.0-8.0); LYMPHOCYTES % (AUTO) 9.4 % (21.0-51.0); MEAN CORPUSCULAR HEMOGLOBIN 29.6 pg (27.0-33.0); MEAN CORPUSCULAR HGB CONC 33.6 g/dL (32.0-36.0); MEAN CORPUSCULAR VOLUME 88.1 fL (79-99); MONOCYTES % (AUTO) 8.9 % (3.0-13.0); NEUTROPHILS % (AUTO) 78.9 % (40.0-77.0); PLATELET COUNT (AUTO) 453 K/uL (130-400); RED BLOOD CELL COUNT(AUTO) 3.75 MIL/uL (4.50-6.20); RED CELL DISTRIBUTION WIDTH 13.8 % (11.0-15.5); WHITE BLOOD COUNT (AUTO) 11.1 K/uL (4.8-10.8)
[2018-11-24 04:17] LABS: CREATININE 0.6 mg/dL (0.5-1.5); POTASSIUM 3.5 mmol/L (3.5-5.1)
[2018-11-24] MEDS: VANCOMYCIN 1.25 GM in SODIUM CHLORIDE 0.9% 250 ML IV SCH ×2 (04:22→17:39)
[2018-11-24] MEDS: POTASSIUM CHLORIDE 20 MEQ ERTAB PO SCH ×2 (05:43→20:36)
[2018-11-24] MEDS: ZOSYN 3.375GM+NS 50ML 50 ML IV SCH ×2 (06:09→14:11)
[2018-11-24] MEDS: INSULIN HUMULIN R 100 UNIT/ML 3ML SQ SCH ×4 (06:32→21:00)
[2018-11-24] MEDS: IPRATROPIUM/ALBUTEROL SULFATE 3 ML SOLUTION IH SCH ×4 (06:58→23:14)
[2018-11-24] MEDS: ACETYLCYSTEINE 10% 100MG/ML 4ML VIAL IH SCH ×2 (06:59→19:06)
[2018-11-24] MEDS: TRAMADOL HCL 50 MG TABLET PO PRN ×2 (07:29→15:38)
[2018-11-24] MEDS: FUROSEMIDE 20 MG TABLET PO SCH ×2 (09:03→20:36)
[2018-11-24] MEDS: ENOXAPARIN SODIUM 40 MG/0.4 ML SYRINGE SQ SCH (09:03)
[2018-11-24] MEDS: GUAIFENESIN 600 MG TABLET.ER PO SCH ×2 (09:03→20:36)
[2018-11-24] MEDS: METOPROLOL TARTRATE 25 MG TAB PO SCH ×2 (09:04→20:36)
[2018-11-24] MEDS: FAMOTIDINE/PF 20 MG/2 ML VIAL IV SCH (09:04)
[2018-11-24] MEDS ORDERED: VANCOMYCIN PROTOCOL PER PHARMACY IV SCH (10:15)
--- NOTE | 2018-11-24 10:37 | NUR ---
PT STATUS IMPROVED. ON 4L/NC. UP IN CHAIR. ENCOURAGED TO INCREASE MOBILIZATION, USE I.S, TCDB. BREWER CATH HAS BEEN REMOVED. DR JIMÉNEZ HAS ROUNDED AND DOWNGRADED PATIENT TO PCCU .
--- NOTE | 2018-11-24 12:16 | NUR ---
I HAD PATIENT WALK IN HALLWAY INDEPENDENTLY- HE HAD NO SOB AND TOLERATED A GOOD 200FT OF WALKING- NO O2- RM AIR O2SAT 92% HR-90
--- NOTE | 2018-11-24 17:05 | NUR ---
PT TRANSFERRED TO ROOM 205. HE WALKED TO HIS ROOM. HAND OFF REPORT GIVEN TO DICK DUKE
--- NOTE | 2018-11-24 19:30 | NUR ---
DR. MCCABE DOING ROUNDS. STATED TO CHANGE VANCOMYCIN TO Q12H FROM Q8HRS. LOVENOX 40MG SQ DAILY. STATED HIGH RISK FOR DVT.
--- NOTE | 2018-11-24 20:00 | NUR ---
PT STATED ITCHINESS TO GENERAL BODY. BENADRYL PRN AVAILABLE.
[2018-11-24] MEDS: ACETAMINOPHEN 325 MG TAB PO PRN ×2 (20:35→22:58)
[2018-11-24] MEDS: FAMOTIDINE 20MG TAB 20 MG TAB PO SCH (20:36)
[2018-11-24] MEDS: INSULIN GLARGINE 100 UNITS/ML 10 ML VIAL SQ SCH (21:00)
[2018-11-24] MEDS ORDERED: VANCOMYCIN 1.5 GM in SODIUM CHLORIDE 0.9% 250 ML IV SCH ×4 (23:00)
[2018-11-25] VITALS (7 sets, daily range): BP systolic 123–159; BP diastolic 73–97
[2018-11-25] MEDS: ZOSYN 3.375GM+NS 50ML 50 ML IV SCH ×4 (00:01→22:49)
[2018-11-25] MEDS: AZITHROMYCIN 500MG+NS 250ML 250 ML IV SCH (02:39)
[2018-11-25 03:40] LABS: BASOPHILS % (AUTO) 0.7 % (0.0-5.0); EOSINOPHILS % (AUTO) 3.1 % (0.0-8.0); HEMATOCRIT 36.7 % (42-54); LYMPHOCYTES % (AUTO) 10.8 % (21.0-51.0); MEAN CORPUSCULAR HEMOGLOBIN 29.2 pg (27.0-33.0); MEAN CORPUSCULAR HGB CONC 32.7 g/dL (32.0-36.0); MEAN CORPUSCULAR VOLUME 89.3 fL (79-99); MONOCYTES % (AUTO) 9.1 % (3.0-13.0); NEUTROPHILS % (AUTO) 76.3 % (40.0-77.0); NUCLEATED RED BLOOD CELLS 0.1 % (0.0-0.19); PLATELET COUNT (AUTO) 479 K/uL (130-400); RED BLOOD CELL COUNT(AUTO) 4.11 MIL/uL (4.50-6.20); RED CELL DISTRIBUTION WIDTH 13.9 % (11.0-15.5); WHITE BLOOD COUNT (AUTO) 10.8 K/uL (4.8-10.8)
[2018-11-25 03:51] LABS: CREATININE 0.7 mg/dL (0.5-1.5)
[2018-11-25] MEDS: VANCOMYCIN 1.5 GM in SODIUM CHLORIDE 0.9% 250 ML IV SCH ×2 (05:50→18:42)
[2018-11-25] MEDS ORDERED: POTASSIUM CHLORIDE 20MEQ/100ML 100 ML IV PRN (06:00)
[2018-11-25] MEDS ORDERED: POTASSIUM CHLORIDE 10% ELIXIR 20 MEQ/15 ML UDCUP PO PRN (06:00)
[2018-11-25] MEDS: POTASSIUM CHLORIDE 20 MEQ ERTAB PO PRN ×4 (06:44→17:28)
[2018-11-25] MEDS: INSULIN HUMULIN R 100 UNIT/ML 3ML SQ SCH ×4 (06:45→20:50)
[2018-11-25] MEDS: ACETYLCYSTEINE 10% 100MG/ML 4ML VIAL IH SCH ×2 (06:53→18:42)
[2018-11-25] MEDS: IPRATROPIUM/ALBUTEROL SULFATE 3 ML SOLUTION IH SCH ×4 (06:53→23:11)
[2018-11-25] MEDS: TRAMADOL HCL 50 MG TABLET PO PRN ×2 (09:02→20:58)
[2018-11-25] MEDS: GUAIFENESIN 600 MG TABLET.ER PO SCH ×2 (09:02→20:52)
[2018-11-25] MEDS: FAMOTIDINE 20MG TAB 20 MG TAB PO SCH ×2 (09:03→20:51)
[2018-11-25] MEDS: POTASSIUM CHLORIDE 20 MEQ ERTAB PO SCH ×2 (09:03→20:52)
[2018-11-25] MEDS: FUROSEMIDE 20 MG TABLET PO SCH ×2 (09:03→20:52)
[2018-11-25] MEDS: METOPROLOL TARTRATE 25 MG TAB PO SCH ×3 (09:03→20:51)
[2018-11-25] MEDS: ENOXAPARIN SODIUM 40 MG/0.4 ML SYRINGE SQ SCH ×2 (09:04→15:43)
[2018-11-25 09:41] LABS: PARTIAL THROMBOPLASTIN TIME 30.1 SEC (26.3-35.5); PROTHROMBIN TIME 10.5 SEC (9.6-11.6)
--- NOTE | 2018-11-25 18:15 | NUR ---
DR WALSH MADE AWARE ABOUT LATEST VANCO TROUGH 4.1, NEW ORDERS GIVEN TO ADMINISTER CURRENT DOSE AND TO DRAW TROUGH WITH 4TH DOSE.
[2018-11-25] MEDS: INSULIN GLARGINE 100 UNITS/ML 10 ML VIAL SQ SCH (20:51)
[2018-11-26] MEDS: AZITHROMYCIN 500MG+NS 250ML 250 ML IV SCH (02:15)
[2018-11-26 03:00] VITALS: BP 136/80
[2018-11-26 03:42] LABS: HEMATOCRIT 35.1 % (42-54); MEAN CORPUSCULAR HEMOGLOBIN 28.9 pg (27.0-33.0); MEAN CORPUSCULAR HGB CONC 32.6 g/dL (32.0-36.0); MEAN CORPUSCULAR VOLUME 88.7 fL (79-99); PLATELET COUNT (AUTO) 477 K/uL (130-400); RED BLOOD CELL COUNT(AUTO) 3.96 MIL/uL (4.50-6.20); RED CELL DISTRIBUTION WIDTH 13.8 % (11.0-15.5); WHITE BLOOD COUNT (AUTO) 12.3 K/uL (4.8-10.8)
[2018-11-26 04:11] LABS: CREATININE 0.7 mg/dL (0.5-1.5); POTASSIUM 3.6 mmol/L (3.5-5.1)
[2018-11-26] MEDS: VANCOMYCIN 1.5 GM in SODIUM CHLORIDE 0.9% 250 ML IV SCH ×2 (06:09→17:49)
[2018-11-26] MEDS: ZOSYN 3.375GM+NS 50ML 50 ML IV SCH ×3 (06:10→22:51)
[2018-11-26] MEDS: ACETYLCYSTEINE 10% 100MG/ML 4ML VIAL IH SCH ×2 (06:30→18:16)
[2018-11-26] MEDS: IPRATROPIUM/ALBUTEROL SULFATE 3 ML SOLUTION IH SCH ×4 (06:30→23:03)
[2018-11-26] MEDS: INSULIN HUMULIN R 100 UNIT/ML 3ML SQ SCH ×4 (06:35→21:00)
[2018-11-26] MEDS: POTASSIUM CHLORIDE 20 MEQ ERTAB PO PRN (06:36)
[2018-11-26 07:24] VITALS: BP 131/83
[2018-11-26] MEDS: FAMOTIDINE 20MG TAB 20 MG TAB PO SCH ×2 (08:49→21:28)
[2018-11-26] MEDS: METOPROLOL TARTRATE 25 MG TAB PO SCH ×3 (08:49→21:29)
[2018-11-26] MEDS: POTASSIUM CHLORIDE 20 MEQ ERTAB PO SCH ×2 (08:50→21:29)
[2018-11-26] MEDS: FUROSEMIDE 20 MG TABLET PO SCH ×2 (08:50→21:28)
[2018-11-26] MEDS: GUAIFENESIN 600 MG TABLET.ER PO SCH ×2 (08:50→21:28)
[2018-11-26] MEDS: ENOXAPARIN SODIUM 40 MG/0.4 ML SYRINGE SQ SCH (08:51)
[2018-11-26] MEDS: TRAMADOL HCL 50 MG TABLET PO PRN (09:49)
--- NOTE | 2018-11-26 11:12 | NUR ---
DR. MATHEW IN ROOM SPEAKING WITH PT.
[2018-11-26 11:40] VITALS: BP 115/73
--- NOTE | 2018-11-26 12:20 | NUR ---
DC PLAN REHAB ORDER IN SYSTEM PATIENT IS A SELF PAY SO FAR: BHASKAR ALVARES, CRYSTAL, RANDY, WILLI, BEST BARNEY SAID NO LAMONTE BEDS. PENDING RECOMMENDATIONS FOR ANTIBIOTICS. PICC PLACED. Addendum: 11/26/18 at 1222 by REZA LUCIO RN CM Amended: Links added.
--- NOTE | 2018-11-26 15:07 | NUR ---
Ntr f/u: Pt reports poor po intake due to poor acceptance of dm diet tray offered from hospital. Pt ate food from outside for lunch brought in by . Pt is newly dx DM this admit w/ prev DM diet education this admit by RDN. pt stated he is picky and doesn't like what is served on his trays. RDN encouraged pt to comply with diet and informed to not bring in food from outside for patient to consume in order to assist w/ normalizing gluc values. Pt and verbalized understanding. cont c current diet. cont w/ encouraging dietary compliance w/in pt. RDN to monitor ntr indices and dm diet acceptance. f/u in 5-7 days. Addendum: 11/26/18 at [address] RD Amended: Links added.
[2018-11-26 15:25] VITALS: BP 143/83
[2018-11-26 19:13] VITALS: BP 150/73
[2018-11-26] MEDS: INSULIN GLARGINE 100 UNITS/ML 10 ML VIAL SQ SCH (21:31)
[2018-11-26 23:07] VITALS: BP 152/87
[2018-11-27] VITALS (7 sets, daily range): BP systolic 98–151; BP diastolic 55–98
[2018-11-27] MEDS: AZITHROMYCIN 500MG+NS 250ML 250 ML IV SCH (01:47)
[2018-11-27 05:55] LABS: BASOPHILS % (AUTO) 0.5 % (0.0-5.0); EOSINOPHILS % (AUTO) 2.8 % (0.0-8.0); HEMATOCRIT 35.9 % (42-54); LYMPHOCYTES % (AUTO) 10.6 % (21.0-51.0); MEAN CORPUSCULAR HEMOGLOBIN 29.4 pg (27.0-33.0); MEAN CORPUSCULAR HGB CONC 33.2 g/dL (32.0-36.0); MEAN CORPUSCULAR VOLUME 88.6 fL (79-99); NEUTROPHILS % (AUTO) 76.1 % (40.0-77.0); PLATELET COUNT (AUTO) 524 K/uL (130-400); RED BLOOD CELL COUNT(AUTO) 4.05 MIL/uL (4.50-6.20); RED CELL DISTRIBUTION WIDTH 13.9 % (11.0-15.5); WHITE BLOOD COUNT (AUTO) 11.4 K/uL (4.8-10.8)
[2018-11-27] MEDS: ZOSYN 3.375GM+NS 50ML 50 ML IV SCH ×3 (06:02→22:36)
[2018-11-27 06:03] LABS: CREATININE 0.9 mg/dL (0.5-1.5); POTASSIUM 4.2 mmol/L (3.5-5.1)
[2018-11-27] MEDS: VANCOMYCIN 1.5 GM in SODIUM CHLORIDE 0.9% 250 ML IV SCH ×2 (06:03→18:27)
[2018-11-27] MEDS: INSULIN HUMULIN R 100 UNIT/ML 3ML SQ SCH ×4 (06:06→20:55)
[2018-11-27] MEDS: IPRATROPIUM/ALBUTEROL SULFATE 3 ML SOLUTION IH SCH ×4 (07:13→23:27)
[2018-11-27] MEDS: ACETYLCYSTEINE 10% 100MG/ML 4ML VIAL IH SCH ×2 (07:14→18:56)
[2018-11-27] MEDS: PHARMACY COMMUNICATION MISC SCH ×2 (09:00→21:00)
[2018-11-27] MEDS: FAMOTIDINE 20MG TAB 20 MG TAB PO SCH ×2 (09:15→20:47)
[2018-11-27] MEDS: GUAIFENESIN 600 MG TABLET.ER PO SCH ×2 (09:18→20:47)
[2018-11-27] MEDS: METOPROLOL TARTRATE 25 MG TAB PO SCH ×3 (09:18→20:46)
[2018-11-27] MEDS: POTASSIUM CHLORIDE 20 MEQ ERTAB PO SCH ×2 (09:18→20:46)
[2018-11-27] MEDS: FUROSEMIDE 20 MG TABLET PO SCH ×2 (09:18→20:47)
[2018-11-27] MEDS: ENOXAPARIN SODIUM 40 MG/0.4 ML SYRINGE SQ SCH (09:19)
[2018-11-27] MEDS: METFORMIN HCL 500 MG TABLET PO SCH ×2 (12:37→16:56)
[2018-11-27] MEDS: TRAMADOL HCL 50 MG TABLET PO PRN ×2 (12:39→16:44)
[2018-11-27] MEDS: GLIPIZIDE 5 MG TABLET PO SCH (16:42)
[2018-11-27] MEDS: INSULIN GLARGINE 100 UNITS/ML 10 ML VIAL SQ SCH (20:56)
[2018-11-28 02:55] VITALS: BP 127/78
[2018-11-28 03:56] LABS: BASOPHILS % (AUTO) 0.7 % (0.0-5.0); EOSINOPHILS % (AUTO) 2.9 % (0.0-8.0); HEMATOCRIT 35.2 % (42-54); LYMPHOCYTES % (AUTO) 13.1 % (21.0-51.0); MEAN CORPUSCULAR HEMOGLOBIN 29.3 pg (27.0-33.0); MEAN CORPUSCULAR HGB CONC 33.1 g/dL (32.0-36.0); MEAN CORPUSCULAR VOLUME 88.5 fL (79-99); MONOCYTES % (AUTO) 10.8 % (3.0-13.0); NEUTROPHILS % (AUTO) 72.5 % (40.0-77.0); PLATELET COUNT (AUTO) 488 K/uL (130-400); RED BLOOD CELL COUNT(AUTO) 3.98 MIL/uL (4.50-6.20); RED CELL DISTRIBUTION WIDTH 13.9 % (11.0-15.5); WHITE BLOOD COUNT (AUTO) 12.5 K/uL (4.8-10.8)
[2018-11-28 04:15] LABS: CREATININE 0.9 mg/dL (0.5-1.5); POTASSIUM 3.6 mmol/L (3.5-5.1)
[2018-11-28] MEDS: VANCOMYCIN 1.5 GM in SODIUM CHLORIDE 0.9% 250 ML IV SCH (05:28)
[2018-11-28] MEDS: IPRATROPIUM/ALBUTEROL SULFATE 3 ML SOLUTION IH SCH ×2 (06:05→11:13)
[2018-11-28] MEDS: ACETYLCYSTEINE 10% 100MG/ML 4ML VIAL IH SCH (06:05)
[2018-11-28] MEDS: ZOSYN 3.375GM+NS 50ML 50 ML IV SCH ×2 (06:13→14:23)
[2018-11-28] MEDS: INSULIN HUMULIN R 100 UNIT/ML 3ML SQ SCH ×3 (06:18→16:26)
[2018-11-28] MEDS: GLIPIZIDE 5 MG TABLET PO SCH ×2 (06:30→16:31)
[2018-11-28 07:00] VITALS: BP 136/95
[2018-11-28] MEDS: METFORMIN HCL 500 MG TABLET PO SCH ×3 (08:06→16:31)
[2018-11-28] MEDS: PHARMACY COMMUNICATION MISC SCH (09:00)
[2018-11-28] MEDS: GUAIFENESIN 600 MG TABLET.ER PO SCH (09:06)
[2018-11-28] MEDS: FUROSEMIDE 20 MG TABLET PO SCH (09:06)
[2018-11-28] MEDS: FAMOTIDINE 20MG TAB 20 MG TAB PO SCH (09:06)
[2018-11-28] MEDS: METOPROLOL TARTRATE 25 MG TAB PO SCH ×2 (09:07→14:23)
[2018-11-28] MEDS: POTASSIUM CHLORIDE 20 MEQ ERTAB PO SCH (09:07)
[2018-11-28] MEDS: ENOXAPARIN SODIUM 40 MG/0.4 ML SYRINGE SQ SCH (09:08)
[2018-11-28 11:00] VITALS: BP 127/79
[2018-11-28] MEDS ORDERED: METO50TA18 PO (14:53)
[2018-11-28] MEDS ORDERED: METF-445 PO (14:53)
[2018-11-28] MEDS ORDERED: IBUP-2077 PO (14:53)
[2018-11-28] MEDS ORDERED: GLIP5TAB11 PO (14:53)
[2018-11-28] MEDS ORDERED: FURO20TA6 PO (14:53)
[2018-11-28 15:58] VITALS: BP 141/77
[2018-11-28] MEDS ORDERED: AMOX-426 PO (16:23)
[2018-11-28] MEDS ORDERED: LEVO500T89 PO (16:24)
== END 2018-11-28 17:00 | disposition home or self-care (01) | DRG 853 ==
LOC: EDH 22:52 → EDHIP 22:53 → 4AH 11-18 01:50 → 2DH 11-18 03:57 → 2BH 11-20 17:36 → 2AH 11-24 17:22
PROVIDERS: ADMIT Hospitalist; ATTEND Hospitalist
PROC: 0B9K8ZZ Drainage of Right Lung, Via Natural or Artificial Opening Endoscopic (ICD-10-PCS; 2018-11-20)
PROC: 5A1945Z Respiratory Ventilation, 24-96 Consecutive Hours (ICD-10-PCS; 2018-11-20)
PROC: 0BH17EZ Insertion of Endotracheal Airway into Trachea, Via Natural or Artificial Opening (ICD-10-PCS; 2018-11-20)
PROC: 0BNK4ZZ Release Right Lung, Percutaneous Endoscopic Approach (ICD-10-PCS; principal; 2018-11-20 15:00)
PROC: 0BJ08ZZ Inspection of Tracheobronchial Tree, Via Natural or Artificial Opening Endoscopic (ICD-10-PCS; 2018-11-21)
PROC: 5A1935Z Respiratory Ventilation, Less than 24 Consecutive Hours (ICD-10-PCS; 2018-11-24)
DX: A41.9 Sepsis, unspecified organism (principal); J18.1 Lobar pneumonia, unspecified organism; J96.01 Acute respiratory failure with hypoxia; J86.9 Pyothorax without fistula; J96.02 Acute respiratory failure with hypercapnia; J98.11 Atelectasis; E46 Unspecified protein-calorie malnutrition; K76.0 Fatty (change of) liver, not elsewhere classified; F12.90 Cannabis use, unspecified, uncomplicated; D64.9 Anemia, unspecified; Z68.36 Body mass index [BMI] 36.0-36.9, adult; E66.01 Morbid (severe) obesity due to excess calories; F17.210 Nicotine dependence, cigarettes, uncomplicated; G47.33 Obstructive sleep apnea (adult) (pediatric); I10 Essential (primary) hypertension; Z79.4 Long term (current) use of insulin; Z91.14 Patient's other noncompliance with medication regimen; Z91.19 Patient's noncompliance with other medical treatment and regimen; Z82.49 Family history of ischemic heart disease and other diseases of the circulatory system; Z83.3 Family history of diabetes mellitus; Z82.5 Family history of asthma and other chronic lower respiratory diseases; E11.9 Type 2 diabetes mellitus without complications
CPT/HCPCS: 36415; 36600; 71045; 71046; 71275; 80048; 80053; 80202; 81001; 82435; 82550; 82803; 82947; 82948; 83036; 83605; 83690; 83735; 84132; 84295; 84484; 85018; 85025; 85027; 85378; 85610; 85730; 86850; 86900; 86901; 86922; 87040; 87070; 87071; 87076; 87116; 87205; 87206; 87324; 87804; 88108; 88305; 93005; 93970; 94002; 94003; 94640; 94660; 94664; 94667; 94668; 97039; 99291; A4344; A4357; A7048; C1894; G0378; J0330; J0456; J0690; J0696; J1100; J1650; J1815; J1940; J2001; J2250; J2270; J2405; J2543; J2704; J2710; J3010; J3370; J3475; J3480; J3490; J7030; J7040; J7608; Q0163; Q9967